=== PATIENT | female | born 1995 | race Caucasian/White ===

== ENCOUNTER 2017-08-22 20:49 | Emergency (ER) | payer BC ==
[~2017-08-22] VITALS: Ht 162.6 cm; Wt 57.2 kg
[2017-08-22 21:21] VITALS: BP 147/67; PULSE 67; RESP 20; TEMP 99; O2SAT 98
--- NOTE | 2017-08-22 22:18 | PD ---
HPI Chief Complaint: Lump, Cyst, Hernia Time Seen by Provider: 22:12 Travel History International Travel<30 days: No Contact w/Intl Traveler<30days: No Traveled to known affect area: No History of Present Illness HPI 22-year-old female patient with family history of several numbers of the family , mother and grandmother with Dr. Darrian Castrejon and DVTs, here because she states that she has had some cramping in her left leg in the past few days and had noticed a lump on the back part of her knee today. She denies any chest pains, shortness of breath, or any other issues. She has not been on any long trips recently. Modifying Factors: None Associated Signs & Symptoms: Leg cramping, lump on the back of her leg Risk Factors: Family history of DVTs PFSH Past Medical History Diminished Hearing: No Medical other: Yes (CALCIUM DEPOSITES TO LEFT KNEE) Immunizations Current: Yes Tetanus Vaccination: > 5 Years ?: Not LMP: 07/31/17 Past Surgical History Surgical History: No Previous Surgery Social History Alcohol Use: Yes (SOCIAL) Tobacco Use: No Substance Use: No Allergies-Medications (Allergen,Severity, Reaction): Coded Allergies: Iodinated Contrast- Oral and IV Dye (Verified Allergy, Severe, 08/22/17) hydrocodone (Verified Adverse Reaction, Unknown, 08/22/17) VOMITING oxycodone (Verified Adverse Reaction, Unknown, 08/22/17) Reported Meds & Prescriptions Reported Meds & Active Scripts Active No Active Prescriptions or Reported Medications Review of Systems Except as stated in HPI: all other systems reviewed are Neg Physical Exam Narrative GENERAL: Well-developed young female patient currently none acute distress. Awake and oriented 3. SKIN: Focused skin assessment warm/dry. HEAD: Atraumatic. Normocephalic. EYES: Pupils equal and round. No scleral icterus. No injection or drainage. ENT: No nasal bleeding or discharge. Mucous membranes pink and moist. NECK: Trachea midline. No JVD. CARDIOVASCULAR: Regular rate and rhythm. No murmur appreciated. RESPIRATORY: No accessory muscle use. Clear to auscultation. Breath sounds equal bilaterally. GASTROINTESTINAL: Abdomen soft, non-tender, nondistended. Hepatic and splenic margins not palpable. MUSCULOSKELETAL: No obvious deformities. No clubbing. No cyanosis. No edema. EXTREMITIES: No clubbing, cyanosis, or edema. No joint tenderness, effusion, or edema noted. Mild left calf tenderness. There is a palpable 1 cm posterior knee ecchymotic area and tender. Bilateral Homans sign negative. NEUROLOGICAL: Awake and alert. No obvious cranial nerve deficits. Motor grossly within normal limits. Normal speech. PSYCHIATRIC: Appropriate mood and affect; insight and judgment normal. Data Data Last Documented VS Vital Signs Date Time Temp Pulse Resp B/P (MAP) Pulse Ox O2 Delivery O2 Flow Rate FiO2 08/22/17 21:21 99.0 67 20 147/67 (93) 98 Orders Orders Us Leg Venous Doppler (08/22/17 22:12) [facility] Medical Decision Making Medical Screen Exam Complete: Yes Emergency Medical Condition: Yes Medical Record Reviewed: Yes Differential Diagnosis Varicose vein versus DVT versus hematoma Narrative Course Ultrasound did not show signs of DVT. At this point, my plan would be to release her with follow-up to primary care doctor. Warm compresses to the area. Return for any worsening in pain or new symptoms as needed. The plan has been discussed with her and she states understanding. Diagnosis Primary Impression: Pain of left calf Scripts No Active Prescriptions or Reported Meds Disposition: 01 DISCHARGE HOME Condition: Stable Chester August MD Aug 22, 2017 22:18
--- NOTE | 2017-08-22 22:51 | RADRPT ---
EXAM DATE/TIME: 08/22/2017 22:33 [place] COMPARISON: No previous studies available for comparison. INDICATIONS : Palpable lump left upper calf. MEDICAL HISTORY : Palpable lump left upper calf. SURGICAL HISTORY : None. ENCOUNTER: Initial ACUITY: 3 days PAIN SCORE: 7/10 LOCATION: Left leg. TECHNIQUE: Venous ultrasound of the leg was performed from the inguinal ligament to the proximal calf. Real-ariel e, color Doppler and spectral tracing, compression and augmentation techniques were used. FINDINGS: There is normal compressibility of the deep venous system from the inguinal region to the proximal ca lf. No echogenic clot is seen in the lumen of the common femoral, femoral, popliteal, and posterior tibial veins. There is a normal response of the venous system to proximal and distal augmentation an d respiration. The palpable area in the upper calf was also scanned; there is increased texture to the subcutaneous fat measuring 8 x 5 mm corresponding to the palpable area without increased flow seen by color Dopple r. CONCLUSION: 1. Study is negative for deep venous thrombosis left lower extremity. 2. Increased echotexture to the subcutaneous fat in the palpable area of the calf could represent con tusion or hematoma. Eliseo Dalton MD on August 22, 2017 at 22:47 Board Certified Radiologist. This report was verified electronically.
== END 2017-08-22 22:53 | disposition home or self-care (01) ==
LOC: PHEFT 20:49
DX: M79.662 Pain in left lower leg (principal); Z88.5 Allergy status to narcotic agent; Z91.041 Radiographic dye allergy status
CPT/HCPCS: 93971; 99284